=== PATIENT | male | born 1975 | race Caucasian/White ===

== ENCOUNTER → 2016-03-29 | Outpatient (CLI) | payer OTHER | END | disposition home or self-care (01) | LOC: C.LAB 18:02 | DX: Z02.83 Encounter for blood-alcohol and blood-drug test (principal) ==

== ENCOUNTER → 2016-06-17 | Outpatient (CLI) | payer OTHER | END | disposition home or self-care (01) | LOC: C.LAB 01:26 | DX: Z02.83 Encounter for blood-alcohol and blood-drug test (principal) ==

== ENCOUNTER 2017-06-17 00:52 | Emergency (ER) | payer OTHER ==
[2017-06-17 00:52] VITALS: TEMP 36.6; O2SAT 96; Ht 180.3 cm
[2017-06-17 01:48] LABS: BLOOD UREA NITROGEN 16 mg/dl (7-18); CALCIUM 8.6 mg/dl (8.5-10.1); CARBON DIOXIDE 23 mmol/L (21-32); GLUCOSE 129 mg/dl (70-99)
[2017-06-17 02:19] LABS: SODIUM 146 mmol/L (136-145)
--- NOTE | 2017-06-17 05:28 | EMERGENCY ROOM VISIT NOTE ---
History First contact with patient: 00:54 Chief Complaint: ALCOHOL OVERDOSE Stated Complaint: ALCOHOL OVERDOSE Nursing Triage Summary: Pt arrived via [facility] from [facility]. Per EMS, pt "kicked out of [employer]" as pt was incontinent of urine while in bar. PD called to scene. PD attempted to help pt into taxi when pt became uncooperative and EMS called for pt evaluation. Pt cooperative with staff upon arrival. Reports drinking mixed drinks tonight and denies drug use. Denies trauma and pain. History of Present Illness The patient is a 41 year old male who presents to the Emergency Room with complaints of alcohol intoxication who is intoxicated at [employer] and then urinated himself. Patient refused to leave so EMS was summoned by the police. Patient states he has had a lot of alcohol. Patient has been seen in this facility before for alcohol intoxication. Patient denies fall, chest pain, dyspnea, drug use, abdominal pain or any other medical complaints. Review of Systems An 10 system review of systems was completed with positives and pertinent negatives listed in the HPI. Past Medical/Surgical History None Social History Smoking Status: Never Smoker Alcohol Use: heavy Drug Use: none Housing Status: lives with family Current/Historical Medications Unable to Obtain Active Prescriptions or Reported Meds Physical Exam Vital Signs Date Time Temp Pulse Resp B/P (MAP) Pulse Ox O2 Delivery O2 Flow Rate FiO2 06/17/17 04:06 75 16 94 06/17/17 04:01 100/60 06/17/17 03:36 74 14 94 06/17/17 03:31 125/69 06/17/17 03:06 92 06/17/17 03:01 119/71 06/17/17 02:36 86 15 94 06/17/17 02:31 100/65 06/17/17 02:06 91 16 93 06/17/17 02:01 111/75 06/17/17 01:52 90 18 91 06/17/17 01:31 119/67 06/17/17 01:22 95 12 95 06/17/17 01:15 93 06/17/17 01:01 128/75 06/17/17 00:52 96 Room Air 06/17/17 00:52 36.6 90 16 137/82 93 Room Air Physical Exam PHYSICAL EXAM: VITALS: Vitals are noted on the nurse's note and reviewed by myself. Vital signs stable. GENERAL: White male with EtOH odor, in no acute distress, nondiaphoretic, well- developed well-nourished. The patient is visibly intoxicated. SKIN: The skin was without obvious lacerations, abrasions, or rashes. There is no tenting of the skin. Capillary reflex less than 2 seconds. HEENT: Normocephalic, atraumatic. PERRLA. EOMI. Conjunctiva with mild injection without icterus. Tympanic membranes without erythema or effusion bilaterally no hemotympanum. External auditory canals are clear. Nares patent bilaterally. No epistaxis. Oropharynx without erythema or exudate. Uvula midline. Oral mucosal moist. No lymphadenopathy. Neck is supple without cervical spine tenderness. HEART: Regular rate and rhythm without murmurs gallops or rubs. Peripheral pulses 2+. LUNGS: Clear to auscultation bilaterally without wheezes, rales or rhonchi. ABDOMEN: Positive bowel sounds x 4. Normal tympanic percussion. Soft, nontender, without masses or organomegaly. MUSCULOSKELETAL: Gross motor function of the upper and lower extremities intact. The patient has a staggering gait. NEUROLOGIC: The patient is visibly intoxicated. Once they were more sober they were alert and oriented to person place and time. Medical Decision & Procedures Laboratory Results 06/17/17 01:01 Test 06/17/17 01:01 Anion Gap 10.0 mmol/L (3-11) Estimated GFR () 109.4 Estimated GFR (Non- 94.4 BUN/Creatinine Ratio 16.1 (10-20) Calcium Level 8.6 mg/dl (8.5-10.1) Ethyl Alcohol mg/dL 334.0 mg/dl (0-3) ED Course Prior records/ancillary studies reviewed. Triage Nursing notes reviewed. Additional history obtained from EMS. The patient's history was concerning for altered mental status and a possible alcohol overdose. Differential diagnosis: Etiologies such as alcohol intoxication, toxicologic, infection, hypoglycemia, electrolyte abnormalities, cardiac sources, intracerebral event, neurologic, as well as others were entertained. Physical examination: As above. The patient is clinically intoxicated. no trauma noted. ER treatment provided: Monitoring Aspiration precautions The patient was frequently reassessed. Diagnostic interpretation by me: Cardiac monitoring did not reveal any evidence of dysrhythmia. The labs reviewed . The patient's blood alcohol level was 334 mg/dL. The patient's history was reviewed once they were more coherent and their intoxication cleared. The patient states they have been in good health recently and had no medical complaints. The patient admitted to consuming alcohol. No additional concerning findings were noted. The patient complained of no symptoms to suggest assault. This appears to be consistent with an isolated overdose of alcohol. By the evaluation outlined above emergent etiologies such as trauma, infection, hypoglycemia, electrolyte abnormalities, cardiac sources, intracerebral event, neurologic,as well as others were deemed relatively unlikely. The patient was informed about the findings as listed above. The patient was counseled on the dangers of excessive alcohol use. I gave my usual and customary discussion regarding this issue. All questions were answered and the patient was pleased with the treatment. Return instructions were outlined and the patient was discharged in stable condition once their mental status improved and a safe destination was confirmed. Outpatient prescription management: None Referral: The patient was referred back to their primary care physician for follow-up in 2 to 3 days for a recheck of their current condition. Medical Decision As above Medication Reconcilliation Current Medication List: was personally reviewed by me Blood Pressure Screening Patient's blood pressure: Normal blood pressure Impression Primary Impression: Alcohol abuse Departure Information Dispostion Home / Self-Care Condition GOOD Prescriptions Unable to Obtain Active Prescriptions or Reported Meds Referrals No Doctor, Assigned (PCP) Patient Instructions My [facility] Additional Instructions DO NOT drive, drink alcohol, operate machinery, or perform dangerous activities today. You were given medications in the ER that can affect your ability to safely function or operate a vehicle. Recommend that you seek help for your alcohol problem. Keep well-hydrated. Tylenol every 6 hours as needed for pain (Maximum 3000 mg Tylenol in 24 hr period). Follow up with family doctor and/or health services as needed. No driving for the next 24 hours. Recommend no alcohol for the next 48 hours and avoid binge drinking in the future. Return to ER sooner for chest pain, abdominal pain, worsening signs or symptoms or as needed.
[2017-06-17 06:01] VITALS: BP 98/59
[2017-06-17 06:11] VITALS: PULSE 76; O2SAT 97
== END 2017-06-17 06:21 | disposition home or self-care (01) ==
LOC: EDBD 00:52 → C.EDB 00:53
DX: F10.129 Alcohol abuse with intoxication, unspecified (principal); Y90.8 Blood alcohol level of 240 mg/100 ml or more